=== PATIENT | female | born 2000 | race Hispanic/Latino ===

== ENCOUNTER 2020-08-08 09:15 | Outpatient (CLI) | payer OTHER ==
[2020-08-08 09:47] VITALS: BP 116/73
== END 2020-08-08 11:05 | disposition home or self-care (01) ==
LOC: TRG 09:15 → APU 09:16 → TRG 11:05
PROVIDERS: ATTEND Obstetrics & Gynecology
DX: O26.892 Other specified pregnancy related conditions, second trimester (principal); N64.4 Mastodynia; Z3A.28 28 weeks gestation of pregnancy
CPT/HCPCS: 59025

== ENCOUNTER 2020-09-13 20:38 | Outpatient (CLI) | payer OTHER ==
--- NOTE | 2020-09-13 23:09 | Ultrasound Report ---
ULTRASOUND OBSTETRIC LIMITED INDICATION / CLINICAL INFORMATION: u/s for placenta check and fetus. Clinical Gestational Age (GA): 34.0 weeks.days COMPARISON: None available. FINDINGS: Single intrauterine is noted. HEART RATE (beats per minute): 150 AMNIOTIC FLUID INDEX (cm) = 14.4 (normal = 7-24 cm) PRESENTATION: Cephalic. ADDITIONAL FINDINGS: Anterior right lateral placenta grade 2 and free of the os. No evidence of acute findings specifically, no evidence of placental abruption. IMPRESSION: 1. No significant abnormality. Specifically, no evidence of placental abruption. Signer Name: Eddy Canales MD Signed: 09/13/2020 11:04 PM Workstation Name: [id number]
== END 2020-09-13 20:50 | disposition still patient (30) ==
LOC: TRG 20:38 → APU 20:39 → TRG 20:50
PROVIDERS: ATTEND Obstetrics & Gynecology
DX: Z34.93 Encounter for supervision of normal pregnancy, unspecified, third trimester (principal); Z3A.34 34 weeks gestation of pregnancy
CPT/HCPCS: 59025; 76815

== ENCOUNTER 2020-09-13 22:02 | Emergency (ER) | payer OTHER | END 2020-09-13 22:47 | disposition left against medical advice (07) | LOC: ED 22:02 ==

== ENCOUNTER 2020-10-30 15:02 | Inpatient (IN) | payer OTHER ==
[2020-10-30] MEDS ORDERED: LOPERAMIDE 2 MG CAP PO PRN (16:13)
[2020-10-30] MEDS ORDERED: OXYTOCIN 10 UNIT/1 ML INJ IM PRN (16:13)
[2020-10-30] MEDS ORDERED: METHYLERGONOVINE MALEATE 0.2 MG/ML VIAL IM PRN (16:13)
[2020-10-30] MEDS ORDERED: ePHEDrine SULFATE 50 MG/1 ML INJ IV PRN (16:13)
[2020-10-30] MEDS ORDERED: LIDOCAINE (2%) 20 MG/1 ML VIAL 20 ML MDV INFILTRATI NR (16:13)
[2020-10-30] MEDS ORDERED: miSOPROStol 200 MCG TAB PR PRN (16:13)
--- NOTE | 2020-10-30 16:13 | History and Physical Report ---
History of Present Illness Date of examination: 10/30/20 Chief complaint: decreased FM History of present illness: EDC Calculations LMP: 10/25/2020 Past History : 1 Term Births: 0 Premature Births: 0 Living Children: 0 Para: 0 Mult. Births: 0 Prev : 0 Prev. attempt? 0 Aborta: 0 Elect. Ab: 0 Spont. Ab: 0 Ectopics: 0 Past Medical History: Anxiety Panic attacks Premature atrial contractions- 2018 (took Rx for 6 mths) Past Surgical History: negative Past Medical History Anesthesia Complications: negative Anemia: negative Autoimmune Disorder: negative Bleeding Disorder: negative Blood Transfusions: negative Breast Disease: negative Diabetes: negative Heart Disease: negative Hypertension: negative Hepatitis/Liver Disease: negative Kidney Disease/UTI: negative Neurologic/Epilepsy/Migraines: negative Phlebitis/Varicosities: negative Psychiatric: positive, anxiety, panic attacks- meds Pulmonary Disease/Asthma: negative Thyroid Disease: negative Hospitalizations: negative Surgery (Non-tube roller): negative Abnormal PAP: negative EDWARD Exposure: negative Infertility: negative Uterine Anomaly: negative Uterine Surgery (not C/S): negative Other Gynecologic Problems: negative Infection History Hx of STD: none HIV Risk Eval: no Hepatitis B Risk Eval: low risk Personal hx. of genital herpes: no Partner hx. of genital herpes: no Rash, Viral, or Febrile illness since last LMP? yes Varicella/Chicken Pox Status: Previous Disease TB Risk: no Infection History Comments: PCP visit 01/2020 for generalized rash, tx with "steriods" per pt; resolved Genetic History Congenital Heart Defect: Mom: no Dad: no Jim Disease: Mom: no Dad: no Thalassemia Mom: no Dad: no Neural Tube Defect Mom: no Dad: no Down's Syndrome Mom: no Dad: no Chilo-Sachs Mom: no Dad: no Sickle Cell Disease/Trait Mom: no Dad: no Hemophilia Mom: no Dad: no Muscular Dystrophy Mom: no Dad: no Cystic Fibrosis Mom: no Dad: no [place] Chorea Mom: no Dad: no Mental Retardation Mom: no Dad: no Fragile X Mom: no Dad: no Other Genetic/Chromosomal Disorder Mom: no Dad: no Child w/other defect Mom: no Dad: no Enviromental Exposures Enviromental Exposures Reviewed Xray Exposure: no Medication, drug, or alcohol use since LMP: no Chemical/Other Exposure: no Exposure to Cat Liter: yes Hx of Parvovirus (Fifth Disease): no Occupational Exposure to Children: none Active Medications: None Current Allergies (reviewed today): No known allergies Past History Past Medical History: other (see HPI) Past Surgical History: other (see HPI) FACETOR History: other (see HPI) Family/Genetic History: other (see HPI) Social history: no significant social history - Obstetrical History Expected Date of Delivery: 10/25/20 Actual Gestation: 40 Week(s) 5 Day(s) : 1 Para: 0 Hx # Term Pregnancies: 0 Number of Pregnancies: 0 Spontaneous Abortions: 0 Induced : 0 Number of Living Children: 0 Medications and Allergies Allergies Allergy/AdvReac Type Severity Reaction Status Date / Time No Known Allergies Allergy Unverified 09/13/20 20:44 Home Medications Medication Instructions Recorded Confirmed Last Taken Type No Known Home Medications [No 10/30/20 10/30/20 Unknown History Reported Home Medications] Review of Systems All systems: negative - Vital Signs Vital signs: Vital Signs Pulse BP 84 113/69 10/30/20 16:00 10/30/20 16:00 Temp Pulse Resp BP Pulse Ox 111 H 113/69 98 10/30/20 16:06 10/30/20 16:00 10/30/20 16:06 - Physical Exam Breasts: Positive: normal Cardiovascular: Regular rate Lungs: Positive: Clear to auscultation Abdomen: Positive: normal appearance, soft Genitourinary (Female): Positive: normal external genitalia, normal perenium Vulva: both: normal Vagina: Positive: normal moisture Uterus: Positive: normal size Anus/Rectum: Positive: normal perianal skin Extremities: Positive: normal Deep Tendon Reflex Grade: Normal +2 - Obstetrical FHR: category 1 Uterine Contraction Monitor Mode: External Cervical Dilatation: 1 Cervical Effacement Percentage: 30 station: -3 Uterine Contraction Frequency (min): irreg Uterine Contraction Pattern: Irregular Uterine Tone Measurement Phase: Resting Results Result Diagrams: 10/30/20 16:46 All other labs normal. Assessment and Plan 19y/o @ 40+5 weeks, GBS neg, presented with no FM since this morning and no regular movement since yesterday. Will begin IOL tonight with cervical ripening. Discussed use of cervidil tonight. all questions addressed, EFW in office today 8#8oz. - Patient Problems (1) Decreased movement Current Visit: Yes Status: Acute Qualifiers: Fetus number: single or unspecified fetus Trimester: third trimester Qualified Code(s): O36.8130 - Decreased movements, third trimester, not applicable or unspecified Plan to address problem: decreased FM x 24hrs due to gestational age of 40+5 will start induction process tonight. (2) 41 weeks gestation of Current Visit: Yes Status: Acute
[2020-10-30] MEDS ORDERED: CARBOPROST TROMETHAMINE 250 MCG/1 ML INJ IM PRN (16:30)
[2020-10-30] MEDS ORDERED: TERBUTALINE 1 MG/1 ML INJ SUB-Q PRN (16:30)
[2020-10-30] MEDS ORDERED: ONDANSETRON 4 MG/2 ML INJ IV PRN (16:30)
[2020-10-30] MEDS ORDERED: NalbUPHINE 10 MG/1 ML INJ IV PRN (16:30)
[2020-10-30] MEDS ORDERED: ACETAMINOPHEN 325 MG TAB PO PRN (16:30)
[2020-10-30] MEDS ORDERED: DINOPROSTONE 10 MG VAG SUPP VG NR (17:00)
[2020-10-30] MEDS ORDERED: OXYTOCIN DRIP 30 UNITS/500 ML BAG IV SCH (17:00)
[2020-10-30 17:27] LABS: Hemoglobin 11.9 gm/dl (10.1-14.3); Mean Corpuscular HGB Conc 34 % (30-34); Mean Corpuscular Volume 84 fl (79-97); Platelet Count 229 K/mm3 (140-440); Red Blood Count 4.15 M/mm3 (3.65-5.03); Red Cell Distribution Width 14.8 % (13.2-15.2)
[2020-10-30] MEDS: LACTATED RINGERS 1,000 ML IV SCH (19:39)
--- NOTE | 2020-10-30 19:48 | Ultrasound Report ---
ULTRASOUND OBSTETRIC LIMITED ULTRASOUND BIOPHYSICAL PROFILE INDICATION / CLINICAL INFORMATION: wellbeing. Clinical Gestational Age (GA) in weeks, days: 40 weeks 5 days TECHNIQUE: Transabdominal. COMPARISON: None available. FINDINGS: BREATHING MOVEMENT = 2 GROSS BODY MOVEMENT = 2 TONE = 2 QUALITATIVE AMNIOTIC FLUID VOLUME = 2 TOTAL BIOPHYSICAL SCORE = 8/8 HEART RATE (beats per minute): 134 PRESENTATION: Cephalic. ADDITIONAL FINDINGS: None. IMPRESSION: 1. Biophysical Score = 8/8 Signer Name: Patel Root MD Signed: 10/30/2020 7:43 PM Workstation Name: [id number]
[2020-10-30] MEDS ORDERED: MINERAL OIL 30 ML ORAL LIQD PO PRN (22:00)
[2020-10-31] MEDS: BUTORPHANOL 2 MG/1 ML INJ IV PRN ×2 (03:09→05:21)
--- NOTE | 2020-10-31 05:29 | Progress Note ---
Assessment and Plan Kyra had given order for Terb for tachysystoly. Given on my arrival. SVE 1,100,-1 BBOW Cat 1 tracing Pt desires epidual for pain mgt. eventually. Will continue to observe When ctx space out will start pitocin per protocol. Subjective - Subjective Date of service: 10/31/20 (Pt very uncomfortable with ctx) Principal diagnosis: IUP@40w6d IOL; cervidil removed tachysystoly Patient reports: movement normal, contractions Objective - Vital Signs Vital Signs: Vital Signs - 12hr 10/30/20 10/30/20 10/30/20 19:27 19:32 19:37 Temperature Pulse Rate 106 H 92 H 85 Blood Pressure Blood Pressure [Left] O2 Sat by Pulse 99 98 98 Oximetry 10/30/20 10/30/20 10/30/20 19:38 19:41 19:42 Temperature 97.8 F Pulse Rate 90 90 94 H Blood Pressure 138/89 Blood Pressure 138/89 [Left] O2 Sat by Pulse 98 Oximetry 10/30/20 10/30/20 10/30/20 19:47 19:52 19:57 Temperature Pulse Rate 98 H 94 H 102 H Blood Pressure Blood Pressure [Left] O2 Sat by Pulse 97 99 98 Oximetry 10/30/20 10/30/20 10/30/20 20:02 20:07 20:12 Temperature Pulse Rate 94 H 94 H 92 H Blood Pressure Blood Pressure [Left] O2 Sat by Pulse 99 99 99 Oximetry 10/30/20 10/30/20 10/30/20 20:17 20:22 20:27 Temperature Pulse Rate 86 100 H 97 H Blood Pressure Blood Pressure [Left] O2 Sat by Pulse 99 99 100 Oximetry 10/30/20 10/30/20 10/30/20 20:32 20:37 20:42 Temperature Pulse Rate 95 H 89 107 H Blood Pressure Blood Pressure [Left] O2 Sat by Pulse 99 99 99 Oximetry 10/30/20 10/30/20 10/30/20 20:47 20:50 20:52 Temperature Pulse Rate 95 H 99 H 105 H Blood Pressure 126/77 Blood Pressure [Left] O2 Sat by Pulse 99 99 Oximetry 10/30/20 10/30/20 10/30/20 20:57 21:07 21:08 Temperature Pulse Rate 92 H 107 H 111 H Blood Pressure Blood Pressure [Left] O2 Sat by Pulse 100 100 93 Oximetry 10/30/20 10/30/20 10/30/20 21:12 21:17 21:20 Temperature Pulse Rate 109 H 93 H 83 Blood Pressure Blood Pressure [Left] O2 Sat by Pulse 99 100 89 Oximetry 10/30/20 10/30/20 10/30/20 21:22 21:27 21:32 Temperature Pulse Rate 98 H 86 79 Blood Pressure Blood Pressure [Left] O2 Sat by Pulse 96 97 97 Oximetry 10/30/20 10/30/20 10/30/20 21:37 21:42 21:47 Temperature Pulse Rate 82 85 91 H Blood Pressure Blood Pressure [Left] O2 Sat by Pulse 98 98 97 Oximetry 10/30/20 10/30/20 10/30/20 21:52 21:57 22:02 Temperature Pulse Rate 86 91 H 89 Blood Pressure Blood Pressure [Left] O2 Sat by Pulse 98 97 98 Oximetry 10/30/20 10/30/20 10/30/20 22:07 22:09 22:12 Temperature Pulse Rate 80 96 H 75 Blood Pressure 122/74 Blood Pressure [Left] O2 Sat by Pulse 98 98 Oximetry 10/30/20 10/30/20 10/30/20 22:17 22:22 22:27 Temperature Pulse Rate 89 80 95 H Blood Pressure Blood Pressure [Left] O2 Sat by Pulse 98 98 97 Oximetry 10/30/20 10/30/20 10/30/20 22:32 22:37 22:42 Temperature Pulse Rate 83 84 85 Blood Pressure Blood Pressure [Left] O2 Sat by Pulse 100 100 99 Oximetry 10/30/20 10/30/20 10/30/20 22:47 22:52 22:57 Temperature Pulse Rate 79 77 76 Blood Pressure Blood Pressure [Left] O2 Sat by Pulse 99 98 99 Oximetry 10/30/20 10/30/20 10/30/20 23:02 23:07 23:10 Temperature Pulse Rate 78 91 H 82 Blood Pressure 144/68 Blood Pressure [Left] O2 Sat by Pulse 99 98 Oximetry 10/30/20 10/30/20 10/30/20 23:12 23:17 23:22 Temperature Pulse Rate 106 H 83 78 Blood Pressure Blood Pressure [Left] O2 Sat by Pulse 98 99 99 Oximetry 10/30/20 10/30/20 10/30/20 23:27 23:32 23:37 Temperature Pulse Rate 78 83 79 Blood Pressure Blood Pressure [Left] O2 Sat by Pulse 99 99 99 Oximetry 10/30/20 10/30/20 10/30/20 23:42 23:47 23:52 Temperature Pulse Rate 83 83 101 H Blood Pressure Blood Pressure [Left] O2 Sat by Pulse 99 98 98 Oximetry 10/30/20 10/31/20 10/31/20 23:57 00:02 00:07 Temperature Pulse Rate 83 84 82 Blood Pressure Blood Pressure [Left] O2 Sat by Pulse 99 96 98 Oximetry 10/31/20 10/31/20 10/31/20 00:10 00:12 00:17 Temperature Pulse Rate 76 77 109 H Blood Pressure 125/67 Blood Pressure [Left] O2 Sat by Pulse 97 97 Oximetry 10/31/20 10/31/20 10/31/20 00:22 00:27 00:32 Temperature Pulse Rate 70 73 78 Blood Pressure Blood Pressure [Left] O2 Sat by Pulse 98 98 97 Oximetry 10/31/20 10/31/20 10/31/20 00:37 00:42 00:47 Temperature Pulse Rate 99 H 73 77 Blood Pressure Blood Pressure [Left] O2 Sat by Pulse 98 99 98 Oximetry 10/31/20 10/31/20 10/31/20 00:52 00:57 01:02 Temperature Pulse Rate 95 H 79 74 Blood Pressure Blood Pressure [Left] O2 Sat by Pulse 99 98 98 Oximetry 10/31/20 10/31/20 10/31/20 01:07 01:09 01:12 Temperature Pulse Rate 95 H 93 H 107 H Blood Pressure 147/79 Blood Pressure [Left] O2 Sat by Pulse 98 100 Oximetry 10/31/20 10/31/20 10/31/20 01:17 01:22 01:27 Temperature Pulse Rate 88 119 H 119 H Blood Pressure Blood Pressure [Left] O2 Sat by Pulse 98 99 99 Oximetry 10/31/20 10/31/20 10/31/20 01:37 01:42 01:44 Temperature 97.8 F Pulse Rate 120 H 90 Blood Pressure Blood Pressure [Left] O2 Sat by Pulse 100 100 Oximetry 10/31/20 10/31/20 10/31/20 01:47 01:52 01:57 Temperature Pulse Rate 103 H 138 H 101 H Blood Pressure Blood Pressure [Left] O2 Sat by Pulse 100 100 100 Oximetry 10/31/20 10/31/20 10/31/20 02:02 02:07 02:09 Temperature Pulse Rate 104 H 91 H 104 H Blood Pressure 134/81 Blood Pressure [Left] O2 Sat by Pulse 100 100 Oximetry 10/31/20 10/31/20 10/31/20 02:12 02:17 02:22 Temperature Pulse Rate 94 H 113 H 100 H Blood Pressure Blood Pressure [Left] O2 Sat by Pulse 100 100 100 Oximetry 10/31/20 10/31/20 10/31/20 02:27 02:32 02:37 Temperature Pulse Rate 113 H 80 88 Blood Pressure Blood Pressure [Left] O2 Sat by Pulse 100 100 100 Oximetry 10/31/20 10/31/20 10/31/20 02:42 02:47 02:52 Temperature Pulse Rate 79 101 H 67 Blood Pressure Blood Pressure [Left] O2 Sat by Pulse 100 99 100 Oximetry 10/31/20 10/31/20 10/31/20 02:57 03:02 03:07 Temperature Pulse Rate 97 H 100 H 81 Blood Pressure Blood Pressure [Left] O2 Sat by Pulse 99 100 97 Oximetry 10/31/20 10/31/20 10/31/20 03:11 03:12 03:14 Temperature Pulse Rate 85 58 L 88 Blood Pressure 133/58 Blood Pressure [Left] O2 Sat by Pulse 97 93 Oximetry 10/31/20 10/31/20 10/31/20 03:17 03:22 03:23 Temperature Pulse Rate 64 59 L 76 Blood Pressure Blood Pressure [Left] O2 Sat by Pulse 99 95 92 Oximetry 10/31/20 10/31/20 10/31/20 03:27 03:32 03:37 Temperature Pulse Rate 73 70 58 L Blood Pressure Blood Pressure [Left] O2 Sat by Pulse 100 100 100 Oximetry 10/31/20 10/31/20 10/31/20 03:42 03:47 03:52 Temperature Pulse Rate 68 66 65 Blood Pressure Blood Pressure [Left] O2 Sat by Pulse 100 100 100 Oximetry 10/31/20 10/31/20 10/31/20 03:57 04:02 04:07 Temperature Pulse Rate 102 H 84 87 Blood Pressure Blood Pressure [Left] O2 Sat by Pulse 100 100 100 Oximetry 07/10/31/20 10/31/20 04:10 04:12 04:17 Temperature Pulse Rate 64 61 90 Blood Pressure 143/77 Blood Pressure [Left] O2 Sat by Pulse 100 99 Oximetry 10/31/20 10/31/20 10/31/20 04:22 04:27 04:32 Temperature Pulse Rate 65 77 79 Blood Pressure Blood Pressure [Left] O2 Sat by Pulse 100 100 97 Oximetry 10/31/20 10/31/20 10/31/20 04:37 04:42 04:45 Temperature Pulse Rate 87 91 H 79 Blood Pressure Blood Pressure [Left] O2 Sat by Pulse 99 100 93 Oximetry 10/31/20 10/31/20 10/31/20 04:47 04:52 04:54 Temperature Pulse Rate 94 H 108 H 66 Blood Pressure Blood Pressure [Left] O2 Sat by Pulse 100 100 90 Oximetry 10/31/20 10/31/20 10/31/20 04:57 05:02 05:07 Temperature Pulse Rate 62 102 H 101 H Blood Pressure Blood Pressure [Left] O2 Sat by Pulse 97 100 100 Oximetry 10/31/20 10/31/20 05:12 05:17 Temperature Pulse Rate 95 H 118 H Blood Pressure Blood Pressure [Left] O2 Sat by Pulse 96 100 Oximetry - Exam Breasts: deferred Cardiovascular: Regular rate Lungs: Normal air movement Abdomen: Present: normal appearance, soft. Absent: distention, tenderness Uterus: Present: normal FHR: auscultation normal, category 1 Uterine Contraction Monitor Mode: External Cervical Dilatation: 1 (BBOW) Cervical Effacement Percentage: 100 station: -1 Uterine Contraction Frequency (min): q1 Uterine Contraction Duration: 35-40 Uterine Contraction Pattern: Regular Uterine Tone Measurement Phase: Resting Uterine Contraction Intensity: Moderate Extremities: normal Deep Tendon Reflex Grade: Normal +2 - Labs Labs: Laboratory Results - last 24 hr 10/30/20 10/30/20 10/30/20 16:46 16:46 16:46 WBC 9.9 RBC 4.15 Hgb 11.9 Hct 35.0 MCV 84 MCH 29 MCHC 34 RDW 14.8 Plt Count 229 Syphilis IgG Antibody Nonreactive Blood Type O POSITIVE Antibody Screen Negative
--- NOTE | 2020-10-31 06:27 | Event Note ---
Date: 10/31/20 (AROM clear fluid) Internal monitors placed w/o difficulty. Pt bolusing for epidural. SVE 4,100,-1. Ctx continue Q 2-4, mod. Received a call pt had a decel to 80s Nursing interventions done. Recovering to baseline 140-150 Observing strip remotely Will continue to closely monitor. Re-eval after epidural.
[2020-10-31] MEDS ORDERED: ePHEDrine SULFATE 50 MG/1 ML INJ IV PRN (06:34)
--- NOTE | 2020-10-31 06:34 | Anesthesia Consultation ---
Anesthesia Consult and Med Hx Date of service: 10/31/20 - Airway Anesthetic Teeth Evaluation: Good ROM Head & Neck: Adequate Mental/Hyoid Distance: Adequate Mallampati Class: Class II Intubation Access Assessment: Probably Good - Pulmonary Exam CTA: Yes - Cardiac Exam Cardiac Exam: RRR - Pre-Operative Health Status ASA Pre-Surgery Classification: ASA2 Proposed Anesthetic Plan: Epidural - Pulmonary Hx Asthma: No COPD: No Hx Pneumonia: No - Cardiovascular System Hx Hypertension: No - Central Nervous System Hx Seizures: No Hx Psychiatric Problems: No - Endocrine Hx Renal Disease: No Hx End Stage Renal Disease: No Hx Hypothyroidism: No Hx Hyperthyroidism: No - Hematic Hx Anemia: No Hx Sickle Cell Disease: No - Other Systems Hx Alcohol Use: No
--- NOTE | 2020-10-31 06:51 | Progress Note ---
Labor Epidural - Labor Epidural Start Time: 06:36 Stop Time: 06:48 Performed by:: [place] Procedure: Patient is requesting epidural for labor pain. H&P, and labs reviewed. Procedure explained, questions answered, consent obtained. Patient in sitting position with blood pressure cuff and pulse ox on and working. Timeout performed immediately before start of procedure. Sterile chlorahexadine 0.5% prep/drape. 3 mL 1% lidocaine skin wheal at L[3]-L[4]. 18-gauge Credporttead epidural needle advanced to [id number] with saline at [7] cm. Epidural catheter advanced to [12] cm, negative aspiration for blood and csf, negative test dose 3 ml 1.5% lidocaine with epinephrine. Epidural dexmedetomidine [30] mcg administered. Sterile steri-strips and tegaderm applied, followed by tape reinforcement. Patient tolerated procedure well. Roland MCCOY
[2020-10-31] MEDS ORDERED: NALOXONE 2 MG/2 ML INJ IV PRN (07:00)
[2020-10-31] MEDS ORDERED: fentaNYL-BUPIV 2 MCG/ML-0.125% 200 MCG/100 ML BAG EPIDURAL SCH (07:00)
[2020-10-31] MEDS ORDERED: OXYTOCIN DRIP 30 UNITS/500 ML BAG IV SCH (08:00)
[2020-10-31] MEDS: LACTATED RINGERS 1,000 ML IV SCH (08:15)
[2020-10-31] MEDS ORDERED: EMLA CREAM 5 GM TP NR (08:52)
[2020-10-31] MEDS ORDERED: BUPIVACAINE/PF (0.25%) 2.5 MG/ML 10 ML VIAL INFILTRATI ONE (09:15)
--- NOTE | 2020-10-31 09:43 | Event Note ---
Date: 10/31/20 (pt remains uncomfortable despite epidural) Pt crying c/o buring with cline cath Ordered EMLA cream to be applied to area for relief. Pt states she could feel my entire cervical exam Anesthesia made aware SVE 6,100,0 Cat 1 strip
[2020-10-31] MEDS ORDERED: TERBUTALINE 1 MG/1 ML INJ ONE (10:40)
[2020-10-31] MEDS ORDERED: LIDOCAINE (2%) 20 MG/1 ML VIAL 20 ML MDV INFILTRATI ONE (11:02)
--- NOTE | 2020-10-31 11:54 | Procedure Note ---
OB Delivery Note - Delivery Date of Delivery: 10/31/20 Chili Powder Mixer: SIXTO AMIN Estimated blood loss: 500cc - Vaginal Delivery presentation: vertex Delivery position: OA Intrapartum events: mult.variable deceleratio Delivery induction: cervidil Delivery augmentation: pitocin Delivery monitor: internal FHT, internal uterine Route of delivery: Delivery placenta: spontaneous Delivery cord: nuchal cord, 3 umbilical vessels Episiotomy: none Delivery laceration: 2nd degree Delivery repair: vicryl Anesthesia: epidural Delivery comments: NELLY present Count correct X 2 live born female over intact perineum OA CAN X 1 removed once baby was delivered. Cord blood obtained. Placenta and membrane del complete and intact, 3 vessel cord. Pit IV infiltrated, had to be restarted. Cytotec 800mcg MS placed. Several lg clots expressed Methergine IM given. Bleeding much improved with interventions and restarting IV Pit. 2nd degree lac repaired with 2-0 vicryl over lidocaine. 8/9, EBL 500, Wgt 9-1. Mom and baby remain LDR stable. FF @ umb Lochia small - Infant A at 1 minute: 8 at 5 minutes: 9 Infant Gender: Female (wgt 9-1 Heather Lezama)
[2020-10-31] MEDS ORDERED: PROMETHAZINE 25 MG TAB PO PRN (12:00)
[2020-10-31] MEDS ORDERED: IBUPROFEN 600 MG TAB PO SCH (12:00)
[2020-10-31] MEDS ORDERED: LANOLIN/ZINC/DIMETHICONE (LANSINOH) 7 GM TP PRN (12:00)
[2020-10-31] MEDS ORDERED: diphenhydrAMINE 25 MG CAP PO PRN (12:00)
[2020-10-31] MEDS ORDERED: WITCH HAZEL/ GLYCERIN PAD TP PRN (12:00)
[2020-10-31] MEDS ORDERED: oxyCODONE /ACETAMINOPHEN 5-325MG TAB PO PRN (12:00)
[2020-10-31] MEDS: METHYLERGONOVINE 0.2 MG TABLET PO SCH ×2 (15:23→22:27)
[2020-10-31] MEDS: IBUPROFEN 800 MG TAB PO SCH ×2 (15:24→22:27)
[2020-10-31] MEDS ORDERED: MAGNESIUM HYDROXIDE (MOM) ORAL LIQD UDC PO PRN (22:00)
[2020-11-01 00:44] LABS: Hematocrit 30.6 % (30.3-42.9); Hemoglobin 10.4 gm/dl (10.1-14.3)
[2020-11-01] MEDS: IBUPROFEN 800 MG TAB PO SCH ×2 (04:00→13:00)
[2020-11-01] MEDS: METHYLERGONOVINE 0.2 MG TABLET PO SCH (05:24)
[2020-11-01] MEDS ORDERED: BENZOCAINE/MENTHOL 20/0.5% TOP SPRAY 56 GM TP PRN (09:00)
[2020-11-01] MEDS ORDERED: BENZOCAINE/MENTHOL 20/0.5% TOP SPRAY 56 GM TP ONE (09:03)
[2020-11-01] MEDS ORDERED: TETANUS,DIPH,PERTUSS(ACELL) VACCINE 0.5 ML SYRINGE IM ONE (11:42)
--- NOTE | 2020-11-01 12:02 | Post Anesthesia Evaluation ---
- Post Anesthesia Evaluation Patient Participated: Yes Airway Patent: Yes Stable Respiratory Function: Yes Nausea/Vomiting: No Temp > 96.8F: Yes Pain Manageable: Yes Adequeate Hydration: Yes Anesthesia Complications: No Block Receding Appropriately: Yes Patient on Ventilator: No
--- NOTE | 2020-11-01 13:14 | Discharge Summary ---
Providers - Providers Date of Admission: 10/30/20 16:13 Date of discharge: 11/01/20 Attending physician: BRIE PERALTA Primary care physician: BRIE PERALTA Hospitalization Reason for admission: IUP at term, other (Decreased movement ) Delivery: Episiotomy: midline Laceration: 2nd degree Other procedures: none complications: none Discharge diagnosis: IUP at term delivered Reading baby: female Hospital course: See dictated H&P. Patient was admitted underwent a normal spontaneous vaginal delivery. Her course was benign. She was afebrile throughout her stay. Her day 1 hematocrit was 30.6%. Patient without any orthostatic symptoms. She is bottlefeeding and desires Nexplanon. Condition at discharge: Good Disposition: DC-01 TO HOME OR SELFCARE - Discharge Diagnoses (1) Decreased movement Status: Resolved Qualifiers: Fetus number: single or unspecified fetus Trimester: third trimester Qualified Code(s): O36.8130 - Decreased movements, third trimester, not applicable or unspecified (2) Normal spontaneous vaginal delivery Status: Acute (3) Single live Status: Acute Plan - Provider Discharge Summary Activity: routine, no sex for 6 weeks, no strenuous exercise Diet: routine Instructions: routine Additional instructions: [] Smoking cessation referral if applicable(refer to patient education folder for contact #) [] Refer to [facility] Booklet Call your doctor immediately for: * Fever > 100.5 * Heavy vaginal bleeding ( >1 pad per hour) * Severe persistent headache * Shortness of breath * Reddened, hot, painful area to leg or breast * Drainage or odor from incision. *Patient to make an appointment for follow-up in 4 weeks - Follow up plan Follow up: BRIE PERALTA MD [Primary Care Provider] - 7 Days
[2020-11-01 15:19] VITALS: BP 111/69
== END 2020-11-01 15:35 | disposition home or self-care (01) | DRG 807 ==
LOC: TRG 15:02 → APU 15:03 → LD 16:13 → TRG 16:13 → OB 10-31 13:45
PROVIDERS: ADMIT Obstetrics & Gynecology; ATTEND Obstetrics & Gynecology
PROC: 10E0XZZ Delivery of Products of Conception, External Approach (ICD-10-PCS; principal; 2020-10-31)
PROC: 0KQM0ZZ Repair Perineum Muscle, Open Approach (ICD-10-PCS; 2020-10-31)
PROC: 3E0P7VZ Introduction of Hormone into Female Reproductive, Via Natural or Artificial Opening (ICD-10-PCS; 2020-10-31)
PROC: 3E0R3BZ Introduction of Anesthetic Agent into Spinal Canal, Percutaneous Approach (ICD-10-PCS; 2020-10-31)
PROC: 00HU33Z Insertion of Infusion Device into Spinal Canal, Percutaneous Approach (ICD-10-PCS; 2020-10-31)
PROC: 10907ZC Drainage of Amniotic Fluid, Therapeutic from Products of Conception, Via Natural or Artificial Opening (ICD-10-PCS; 2020-10-31)
PROC: 3E0234Z Introduction of Serum, Toxoid and Vaccine into Muscle, Percutaneous Approach (ICD-10-PCS; 2020-11-01)
DX: O76 Abnormality in fetal heart rate and rhythm complicating labor and delivery (principal); Z37.0 Single live birth; O36.8130 Decreased fetal movements, third trimester, not applicable or unspecified; O69.81X0 Labor and delivery complicated by cord around neck, without compression, not applicable or unspecified; Z20.822 Contact with and (suspected) exposure to COVID-19; O70.1 Second degree perineal laceration during delivery; Z3A.40 40 weeks gestation of pregnancy
CPT/HCPCS: 36415; 59200; 76819; 85014; 85018; 85027; 86592; 86850; 86900; 86901; 96372; 99211; G0378; G0463; J0595; J2300; J2590; J3105; J7120; U0003